=== PATIENT | male | born 1975 | race Hispanic/Latino ===

== ENCOUNTER 2018-09-03 18:38 | Emergency (ER) | payer SELFPAY ==
[2018-09-03] MEDS ORDERED: KETOROLAC TROMETHAMINE 30MG/ML ONE (19:05)
[2018-09-03] MEDS ORDERED: 0.9% SODIUM CHLORIDE 1000 ML IV BAG IV ONE (19:08)
[2018-09-03 19:10] LABS: BASOPHILS % (AUTO) 0.6 % (0.0-5.0); HEMATOCRIT 39.8 % (42-54); MEAN CORPUSCULAR HEMOGLOBIN 29.9 pg (27.0-33.0); MEAN CORPUSCULAR HGB CONC 34.3 g/dL (32.0-36.0); MEAN CORPUSCULAR VOLUME 87.2 fL (79-99); MONOCYTES % (AUTO) 6.8 % (3.0-13.0); NEUTROPHILS % (AUTO) 83.6 % (40.0-77.0); PLATELET COUNT (AUTO) 270 K/uL (130-400); RED BLOOD CELL COUNT(AUTO) 4.56 MIL/uL (4.50-6.20)
[2018-09-03 19:13] LABS: APPEARANCE,URINE Clear (CLEAR); BILIRUBIN,URINE Negative (NEGATIVE); COLOR,URINE Yellow (YELLOW); GLUCOSE, URINE (UA) >=1000 mg/dL (NEGATIVE); KETONES,URINE Negative (NEGATIVE); LEUKOCYTE ESTERASE ,URINE Negative (NEGATIVE); NITRATE,URINE Negative (NEGATIVE); OCCULT BLOOD,URINE Negative (NEGATIVE); PH,URINE 6.5 (5.0-8.0); PROTEIN,URINE Negative (NEGATIVE); UROBILINOGEN,URINE 0.2 mg/dL (0.2-1.0)
[2018-09-03 19:21] LABS: CREATININE 1.3 mg/dL (0.5-1.5); POTASSIUM 3.8 mmol/L (3.5-5.1)
[2018-09-03 19:25] LABS: ALBUMIN 4.2 g/dL (3.5-5.0); BILIRUBIN,TOTAL 1.3 mg/dL (0.2-1.0); TOTAL PROTEIN, SERUM 7.8 g/dL (6.0-8.3)
== END 2018-09-03 20:50 | disposition home or self-care (01) ==
LOC: EDH 18:38
DX: E86.9 Volume depletion, unspecified (principal); R19.7 Diarrhea, unspecified; E11.9 Type 2 diabetes mellitus without complications; Z72.0 Tobacco use
CPT/HCPCS: 36415; 80053; 81003; 82550; 85025; 87804 ×2; 96361; 96374; 99283; J1885; J7030

== ENCOUNTER 2020-01-12 09:30 | Emergency (ER) | payer OTHER | END 2020-01-12 10:17 | disposition home or self-care (01) | LOC: EDH 09:30 | DX: B02.9 Zoster without complications (principal); E11.9 Type 2 diabetes mellitus without complications; Z72.0 Tobacco use ==

== ENCOUNTER 2021-02-26 13:21 | Inpatient (IN) | payer OTHER ==
[~2021-02-26] VITALS: Ht 182.9 cm; Wt 75.4 kg
[2021-02-26] MEDS ORDERED: ZOSYN 3.375GM+NS 50ML 50 ML IV STA (13:36)
[2021-02-26] MEDS ORDERED: 0.9% NACL 250ML IVPB ONE (13:43)
[2021-02-26] MEDS ORDERED: VANCOMYCIN 1G VIAL IVPB ONE (14:00)
[2021-02-26 14:05] LABS: BASOPHILS % (AUTO) 0.4 % (0.0-5.0); EOSINOPHILS % (AUTO) 0.7 % (0.0-8.0); HEMATOCRIT 30.2 % (42-54); MEAN CORPUSCULAR HEMOGLOBIN 29.2 pg (27.0-33.0); MEAN CORPUSCULAR HGB CONC 34.4 g/dL (32.0-36.0); MEAN CORPUSCULAR VOLUME 84.8 fL (79-99); MONOCYTES % (AUTO) 6.7 % (3.0-13.0); NEUTROPHILS % (AUTO) 84.7 % (40.0-77.0); PLATELET COUNT (AUTO) 292 K/uL (130-400); RED BLOOD CELL COUNT(AUTO) 3.56 MIL/uL (4.50-6.20); RED CELL DISTRIBUTION WIDTH 12.6 % (11.0-15.5); WHITE BLOOD COUNT (AUTO) 13.8 K/uL (4.8-10.8)
[2021-02-26 14:14] LABS: POTASSIUM 3.3 mmol/L (3.5-5.1)
[2021-02-26 14:18] LABS: TOTAL PROTEIN, SERUM 7.5 g/dL (6.0-8.3)
[2021-02-26] MEDS ORDERED: ZOSYN 3.375GM+NS 50ML 50 ML ONE (15:26)
[2021-02-26] MEDS ORDERED: VANCOMYCIN 1G/250ML KIT 250 ML IV ONE (15:26)
[2021-02-26] MEDS ORDERED: ONDANSETRON 4MG INJ IV PRN (16:00)
[2021-02-26] MEDS ORDERED: LIDOCAINE HCL-MPF 1% 2ML VIAL IV PRN (16:00)
[2021-02-26] MEDS ORDERED: COMPOUND IV REFRIGERATED 1 EACH IVSOLN MISC PRN (16:00)
[2021-02-26] MEDS ORDERED: POTASSIUM CHLORIDE 10% ELIXIR 20 MEQ/15 ML UDCUP PO PRN (16:00)
[2021-02-26] MEDS ORDERED: ZOLPIDEM TARTRATE 5 MG TAB PO PRN (16:00)
[2021-02-26] MEDS ORDERED: POTASSIUM CHLORIDE 20MEQ/100ML 100 ML IV PRN (16:00)
[2021-02-26] MEDS ORDERED: VANCOMYCIN PROTOCOL PER PHARMACY IV PRN (16:00)
[2021-02-26] MEDS ORDERED: ACETAMINOPHEN 325 MG TAB PO PRN ×2 (16:00)
[2021-02-26] MEDS ORDERED: LACTULOSE 20 GM/30 ML UDCUP PO PRN (16:00)
[2021-02-26] MEDS ORDERED: DIPHENHYDRAMINE HCL 25 MG CAPSULE PO PRN (16:00)
[2021-02-26] MEDS: 0.9%NACL 1000ML 1,000 ML IV SCH (17:16)
[2021-02-26] MEDS ORDERED: DEXTROSE 50%-WATER 50 ML DISP.SYRIN IV PRN (17:30)
[2021-02-26] MEDS ORDERED: GLUCAGON 1MG KIT 1 MG ML IM PRN (17:30)
[2021-02-26] MEDS: FAMOTIDINE 20MG TAB PO SCH (20:46)
[2021-02-26] MEDS: ACETAMINOPHEN WITH CODEINE 1 TAB TAB PO PRN (20:47)
[2021-02-26] MEDS: ZOSYN 3.375GM+NS 50ML 50 ML IV SCH ×2 (21:00→23:06)
[2021-02-26] MEDS: INSULIN HUMULIN R 100 UNIT/ML 3ML SQ SCH (21:05)
[2021-02-26 21:58] LABS: APPEARANCE,URINE Clear (CLEAR); BILIRUBIN,URINE Negative (NEGATIVE); COLOR,URINE Yellow (YELLOW); GLUCOSE, URINE (UA) >=1000 mg/dL (NEGATIVE); KETONES,URINE 15 mg/dL (NEGATIVE); LEUKOCYTE ESTERASE ,URINE Negative (NEGATIVE); NITRATE,URINE Negative (NEGATIVE); OCCULT BLOOD,URINE Negative (NEGATIVE); PH,URINE 7.5 (5.0-8.0); PROTEIN,URINE Trace mg/dL (NEGATIVE)
[2021-02-26 22:04] LABS: BACTERIA,URINE None Seen /HPF (None Seen); MUCUS,URINE Few LPF (None Seen); RBC,URINE 0-1 /HPF (0-1); SQUAMOUS EPITHELIAL CELL,UR 0-2 /HPF (0-2); WBC,URINE 0-1 /HPF (0-1)
[2021-02-26] MEDS: VANCOMYCIN 1.25GM/NS 250ML IVPB SCH ×2 (22:55)
[2021-02-26] MEDS ORDERED: 0.9%NACL 50ML 50 ML IV ONE (23:02)
[2021-02-27] VITALS (7 sets, daily range): BP systolic 118–169; BP diastolic 63–89
[2021-02-27] MEDS: 0.9%NACL 1000ML 1,000 ML IV SCH ×3 (02:00→22:00)
[2021-02-27] MEDS ORDERED: MORPHINE 4 MG SYG IV ONE (03:00)
[2021-02-27 05:48] LABS: BASOPHILS % (AUTO) 0.3 % (0.0-5.0); EOSINOPHILS % (AUTO) 0.7 % (0.0-8.0); HEMATOCRIT 29.1 % (42-54); LYMPHOCYTES % (AUTO) 10.4 % (21.0-51.0); MEAN CORPUSCULAR HEMOGLOBIN 28.2 pg (27.0-33.0); MEAN CORPUSCULAR HGB CONC 33.7 g/dL (32.0-36.0); MEAN CORPUSCULAR VOLUME 83.9 fL (79-99); MONOCYTES % (AUTO) 9.8 % (3.0-13.0); NEUTROPHILS % (AUTO) 78.3 % (40.0-77.0); PLATELET COUNT (AUTO) 311 K/uL (130-400); RED BLOOD CELL COUNT(AUTO) 3.47 MIL/uL (4.50-6.20); RED CELL DISTRIBUTION WIDTH 12.7 % (11.0-15.5); WHITE BLOOD COUNT (AUTO) 13.3 K/uL (4.8-10.8)
[2021-02-27 06:19] LABS: ALBUMIN 2.6 g/dL (3.5-5.0); BILIRUBIN,TOTAL 0.9 mg/dL (0.2-1.0); CREATININE 0.9 mg/dL (0.5-1.5); POTASSIUM 3.1 mmol/L (3.5-5.1); TOTAL PROTEIN, SERUM 6.9 g/dL (6.0-8.3)
[2021-02-27 06:24] LABS: HEMOGLOBIN A1C 12.5 % (4.0-6.0)
[2021-02-27] MEDS: INSULIN HUMULIN R 100 UNIT/ML 3ML SQ SCH ×4 (07:30→21:00)
[2021-02-27] MEDS: FAMOTIDINE 20MG TAB PO SCH ×2 (09:00→21:00)
[2021-02-27] MEDS: ENOXAPARIN SODIUM 30 MG/0.3 ML SQ SCH (09:00)
[2021-02-27] MEDS: VANCOMYCIN 1.25GM/NS 250ML IVPB SCH ×4 (09:44→21:32)
[2021-02-27] MEDS: MORPHINE 2 MG SYG IVP PRN ×2 (11:19→20:15)
[2021-02-27] MEDS: ZOSYN 3.375GM+NS 50ML 50 ML IV SCH ×2 (14:08→21:31)
[2021-02-27] MEDS ORDERED: MIDAZOLAM HCL 1 MG/ML 2ML VIAL ONE (21:33)
[2021-02-27] MEDS ORDERED: PROPOFOL 10 MG/ML 20ML VIAL IV ONE (21:34)
[2021-02-27] MEDS ORDERED: FENTANYL CITRATE PF 50 MCG/1 ML 2ML VIAL ONE (21:34)
[2021-02-28] VITALS (23 sets, daily range): BP systolic 83–148; BP diastolic 43–84
[2021-02-28] MEDS ORDERED: BUPIVACAINE/PF 0.5% 30ML VIAL ONE (00:40)
[2021-02-28] MEDS ORDERED: LIDOCAINE HCL 1% 20 ML VIAL ONE (00:40)
[2021-02-28] MEDS ORDERED: PROPOFOL 10 MG/ML 20ML VIAL IV ONE ×3 (00:41→01:21)
[2021-02-28] MEDS ORDERED: MIDAZOLAM HCL 1 MG/ML 2ML VIAL ONE (00:52)
[2021-02-28] MEDS ORDERED: FENTANYL CITRATE PF 50 MCG/1 ML 2ML VIAL ONE (01:04)
[2021-02-28] MEDS: 0.9%NACL 1000ML 1,000 ML IV SCH ×3 (01:35→18:15)
[2021-02-28 05:05] LABS: BASOPHILS % (AUTO) 0.4 % (0.0-5.0); EOSINOPHILS % (AUTO) 0.3 % (0.0-8.0); HEMATOCRIT 27.1 % (42-54); LYMPHOCYTES % (AUTO) 10.5 % (21.0-51.0); MEAN CORPUSCULAR HEMOGLOBIN 28.3 pg (27.0-33.0); MEAN CORPUSCULAR HGB CONC 32.8 g/dL (32.0-36.0); MEAN CORPUSCULAR VOLUME 86.3 fL (79-99); MONOCYTES % (AUTO) 8.8 % (3.0-13.0); NEUTROPHILS % (AUTO) 79.6 % (40.0-77.0); PLATELET COUNT (AUTO) 303 K/uL (130-400); RED BLOOD CELL COUNT(AUTO) 3.14 MIL/uL (4.50-6.20); RED CELL DISTRIBUTION WIDTH 12.8 % (11.0-15.5)
[2021-02-28 05:22] LABS: CREATININE 0.9 mg/dL (0.5-1.5); POTASSIUM 3.1 mmol/L (3.5-5.1)
[2021-02-28] MEDS: KCL 20 MEQ ERTAB PO PRN ×3 (05:34→10:31)
[2021-02-28] MEDS: HYDROMORPHONE 0.5 MG SYG (0.5MG/0.5ML) IVP PRN (05:35)
[2021-02-28] MEDS: ZOSYN 3.375GM+NS 50ML 50 ML IV SCH ×3 (05:56→20:16)
[2021-02-28] MEDS: INSULIN HUMULIN R 100 UNIT/ML 3ML SQ SCH ×4 (06:17→21:14)
[2021-02-28] MEDS: FAMOTIDINE 20MG TAB PO SCH ×2 (10:04→20:16)
[2021-02-28] MEDS: ENOXAPARIN SODIUM 30 MG/0.3 ML SQ SCH (10:05)
[2021-02-28] MEDS: VANCOMYCIN 1.5GM/NS 250ML IV SCH ×4 (10:05→20:16)
[2021-02-28] MEDS: MORPHINE 2 MG SYG IVP PRN ×3 (10:18→20:17)
[2021-02-28] MEDS ORDERED: IOHEXOL 350 MG/ML 100ML INFUS..BTL IV ONE (15:50)
[2021-02-28] MEDS ORDERED: IOHEXOL-350 50ML VIAL IV ONE (15:50)
[2021-03-01] VITALS (7 sets, daily range): BP systolic 108–146; BP diastolic 50–83
[2021-03-01] MEDS: MORPHINE 2 MG SYG IVP PRN ×3 (00:19→21:53)
[2021-03-01] MEDS: 0.9%NACL 1000ML 1,000 ML IV SCH ×2 (04:00→14:57)
[2021-03-01] MEDS: HYDROMORPHONE 0.5 MG SYG (0.5MG/0.5ML) IVP PRN ×2 (04:10→18:11)
[2021-03-01 05:08] LABS: HEMATOCRIT 25.1 % (42-54); MEAN CORPUSCULAR HEMOGLOBIN 28.5 pg (27.0-33.0); MEAN CORPUSCULAR HGB CONC 33.9 g/dL (32.0-36.0); MEAN CORPUSCULAR VOLUME 84.2 fL (79-99); RED BLOOD CELL COUNT(AUTO) 2.98 MIL/uL (4.50-6.20); RED CELL DISTRIBUTION WIDTH 12.8 % (11.0-15.5); WHITE BLOOD COUNT (AUTO) 12.1 K/uL (4.8-10.8)
[2021-03-01 05:27] LABS: CREATININE 0.9 mg/dL (0.5-1.5); POTASSIUM 3.1 mmol/L (3.5-5.1)
[2021-03-01] MEDS: ZOSYN 3.375GM+NS 50ML 50 ML IV SCH ×2 (05:54→12:13)
[2021-03-01] MEDS: KCL 20 MEQ ERTAB PO PRN ×3 (06:33→14:57)
[2021-03-01] MEDS: INSULIN HUMULIN R 100 UNIT/ML 3ML SQ SCH ×4 (06:54→20:15)
[2021-03-01] MEDS ORDERED: KCL 20 MEQ ERTAB PO PRN (07:00)
[2021-03-01] MEDS ORDERED: LIDOCAINE HCL-MPF 1% 2ML VIAL IV PRN (07:00)
[2021-03-01] MEDS ORDERED: POTASSIUM CHLORIDE 10% ELIXIR 20 MEQ/15 ML UDCUP PO PRN (07:00)
[2021-03-01] MEDS ORDERED: POTASSIUM CHLORIDE 20MEQ/100ML 100 ML IV PRN (07:00)
[2021-03-01] MEDS: FAMOTIDINE 20MG TAB PO SCH ×2 (08:52→20:10)
[2021-03-01] MEDS: ASPIRIN 81 MG EC TAB PO SCH (08:52)
[2021-03-01] MEDS: ENOXAPARIN SODIUM 30 MG/0.3 ML SQ SCH (08:53)
[2021-03-01] MEDS: VANCOMYCIN 1.5GM/NS 250ML IV SCH ×2 (08:54)
[2021-03-01] MEDS: GUAIFENESIN-DM 200/20 MG 10 ML PO PRN (12:27)
[2021-03-01] MEDS: CEPHALEXIN 500 MG CAPSULE PO SCH ×2 (14:57→20:11)
[2021-03-01] MEDS: ACETAMINOPHEN WITH CODEINE 1 TAB TAB PO PRN (15:01)
[2021-03-02] MEDS: MORPHINE 2 MG SYG IVP PRN ×2 (02:16→20:16)
[2021-03-02 03:19] VITALS: BP 123/65
[2021-03-02] MEDS: 0.9%NACL 1000ML 1,000 ML IV SCH ×3 (04:27→20:00)
[2021-03-02 04:57] LABS: HEMATOCRIT 25.6 % (42-54); MEAN CORPUSCULAR HEMOGLOBIN 28.5 pg (27.0-33.0); MEAN CORPUSCULAR HGB CONC 33.2 g/dL (32.0-36.0); MEAN CORPUSCULAR VOLUME 85.9 fL (79-99); RED BLOOD CELL COUNT(AUTO) 2.98 MIL/uL (4.50-6.20); RED CELL DISTRIBUTION WIDTH 12.8 % (11.0-15.5); WHITE BLOOD COUNT (AUTO) 9.9 K/uL (4.8-10.8)
[2021-03-02 05:07] LABS: CREATININE 0.9 mg/dL (0.5-1.5); POTASSIUM 3.7 mmol/L (3.5-5.1)
[2021-03-02] MEDS: INSULIN HUMULIN R 100 UNIT/ML 3ML SQ SCH ×4 (06:03→20:15)
[2021-03-02] MEDS: CEPHALEXIN 500 MG CAPSULE PO SCH ×3 (06:09→21:42)
[2021-03-02 07:54] VITALS: BP 138/88
[2021-03-02] MEDS: FAMOTIDINE 20MG TAB PO SCH ×2 (08:05→20:18)
[2021-03-02] MEDS: ASPIRIN 81 MG EC TAB PO SCH (08:05)
[2021-03-02] MEDS: ENOXAPARIN SODIUM 30 MG/0.3 ML SQ SCH (08:05)
[2021-03-02] MEDS: HYDROMORPHONE 0.5 MG SYG (0.5MG/0.5ML) IVP PRN ×3 (08:17→14:58)
[2021-03-02] MEDS: GUAIFENESIN-DM 200/20 MG 10 ML PO PRN ×2 (09:54→21:13)
[2021-03-02 12:24] VITALS: BP 133/76
[2021-03-02 16:38] VITALS: BP 125/76
[2021-03-02 19:53] VITALS: BP 173/94
[2021-03-02] MEDS: ATORVASTATIN 10 MG TABLET PO SCH (20:18)
[2021-03-02 23:31] VITALS: BP 124/69
[2021-03-03 03:49] VITALS: BP 151/92
[2021-03-03] MEDS: INSULIN HUMULIN R 100 UNIT/ML 3ML SQ SCH ×4 (05:46→20:33)
[2021-03-03] MEDS: CEPHALEXIN 500 MG CAPSULE PO SCH ×3 (05:55→20:57)
[2021-03-03] MEDS: 0.9%NACL 1000ML 1,000 ML IV SCH ×2 (06:00→16:00)
[2021-03-03] MEDS: MORPHINE 2 MG SYG IVP PRN (06:16)
[2021-03-03 08:08] VITALS: BP 127/80
[2021-03-03] MEDS: FAMOTIDINE 20MG TAB PO SCH ×2 (09:16→20:36)
[2021-03-03] MEDS: ASPIRIN 81 MG EC TAB PO SCH (09:16)
[2021-03-03] MEDS: ENOXAPARIN SODIUM 30 MG/0.3 ML SQ SCH (09:17)
[2021-03-03] MEDS: HYDROMORPHONE 0.5 MG SYG (0.5MG/0.5ML) IVP PRN ×3 (11:22→22:53)
[2021-03-03 11:59] VITALS: BP 138/89
[2021-03-03 16:07] VITALS: BP 128/76
[2021-03-03 20:24] VITALS: BP 132/85
[2021-03-03] MEDS: ATORVASTATIN 10 MG TABLET PO SCH (20:36)
[2021-03-04 00:28] VITALS: BP 122/82
[2021-03-04 04:28] VITALS: BP 134/78
[2021-03-04] MEDS: CEPHALEXIN 500 MG CAPSULE PO SCH ×2 (05:22→15:07)
[2021-03-04 06:11] LABS: BASOPHILS % (AUTO) 0.7 % (0.0-5.0); EOSINOPHILS % (AUTO) 5.7 % (0.0-8.0); HEMATOCRIT 27.2 % (42-54); LYMPHOCYTES % (AUTO) 23.4 % (21.0-51.0); MEAN CORPUSCULAR HEMOGLOBIN 28.6 pg (27.0-33.0); MEAN CORPUSCULAR HGB CONC 33.1 g/dL (32.0-36.0); MEAN CORPUSCULAR VOLUME 86.3 fL (79-99); MONOCYTES % (AUTO) 8.8 % (3.0-13.0); NEUTROPHILS % (AUTO) 60.5 % (40.0-77.0); PLATELET COUNT (AUTO) 537 K/uL (130-400); RED BLOOD CELL COUNT(AUTO) 3.15 MIL/uL (4.50-6.20); RED CELL DISTRIBUTION WIDTH 12.9 % (11.0-15.5)
[2021-03-04] MEDS: INSULIN HUMULIN R 100 UNIT/ML 3ML SQ SCH ×3 (06:26→16:30)
[2021-03-04 06:33] LABS: CREATININE 0.9 mg/dL (0.5-1.5); POTASSIUM 3.8 mmol/L (3.5-5.1)
[2021-03-04 07:49] VITALS: BP 125/78
[2021-03-04] MEDS ORDERED: ATOR10 PO (07:55)
[2021-03-04] MEDS ORDERED: AEC81 PO (07:55)
[2021-03-04] MEDS ORDERED: TYL3B PO (07:55)
[2021-03-04] MEDS ORDERED: CEPH500C2 PO (07:55)
[2021-03-04] MEDS: ASPIRIN 81 MG EC TAB PO SCH (08:58)
[2021-03-04] MEDS: FAMOTIDINE 20MG TAB PO SCH (08:58)
[2021-03-04] MEDS: ENOXAPARIN SODIUM 30 MG/0.3 ML SQ SCH (08:59)
[2021-03-04] MEDS: MORPHINE 2 MG SYG IVP PRN (09:01)
[2021-03-04 12:00] VITALS: BP 145/89
[2021-03-04] MEDS ORDERED: HONEY 1 APPL/ML TUBE TP ONE (14:41)
== END 2021-03-04 15:30 | disposition home or self-care (01) | DRG 853 ==
LOC: EDH 13:21 → EDHIP 13:22 → 3BH 02-27 02:30
PROVIDERS: ADMIT Internal Medicine; ATTEND Internal Medicine
PROC: 0JBQ0ZZ Excision of Right Foot Subcutaneous Tissue and Fascia, Open Approach (ICD-10-PCS; 2021-02-26)
PROC: 0LBV0ZZ Excision of Right Foot Tendon, Open Approach (ICD-10-PCS; 2021-02-28)
PROC: 0Y6M0Z9 Detachment at Right Foot, Partial 1st Ray, Open Approach (ICD-10-PCS; principal; 2021-02-28 00:35)
DX: A41.9 Sepsis, unspecified organism (principal); A48.0 Gas gangrene; M72.6 Necrotizing fasciitis; E44.0 Moderate protein-calorie malnutrition; E11.52 Type 2 diabetes mellitus with diabetic peripheral angiopathy with gangrene; M86.8X7 Other osteomyelitis, ankle and foot; L03.115 Cellulitis of right lower limb; E11.621 Type 2 diabetes mellitus with foot ulcer; E87.6 Hypokalemia; L97.519 Non-pressure chronic ulcer of other part of right foot with unspecified severity; E11.65 Type 2 diabetes mellitus with hyperglycemia; E11.69 Type 2 diabetes mellitus with other specified complication; L97.529 Non-pressure chronic ulcer of other part of left foot with unspecified severity; F17.210 Nicotine dependence, cigarettes, uncomplicated; F14.10 Cocaine abuse, uncomplicated; G89.29 Other chronic pain; Z68.22 Body mass index [BMI] 22.0-22.9, adult; Z82.49 Family history of ischemic heart disease and other diseases of the circulatory system
CPT/HCPCS: 36415; 73630; 73718; 75635; 80048; 80053; 80061; 80202; 81001; 82948; 83036; 83605; 85025; 85027; 87040; 87070; 87076; 87077; 87088; 87186; 87205; 93005; 93925; G0378; J1170; J1650; J1815; J2250; J2270; J2543; J2704; J3010; J3370; J3480; J3490; J7030; J7050; Q9967

== ENCOUNTER 2021-03-30 11:05 | Inpatient (IN) | payer OTHER ==
[~2021-03-30] VITALS: Ht 180.3 cm; Wt 79.4 kg
[~2021-03-30 11:05] MED LIST: AEC81 PO; ATOR10 PO; CEPH500C2 PO; TYL3B PO
[2021-03-30 12:22] LABS: BASOPHILS % (AUTO) 0.9 % (0.0-5.0); EOSINOPHILS % (AUTO) 2.8 % (0.0-8.0); HEMATOCRIT 35.5 % (42-54); MEAN CORPUSCULAR HEMOGLOBIN 27.4 pg (27.0-33.0); MEAN CORPUSCULAR VOLUME 83.1 fL (79-99); MONOCYTES % (AUTO) 7.2 % (3.0-13.0); NEUTROPHILS % (AUTO) 68.6 % (40.0-77.0); PLATELET COUNT (AUTO) 374 K/uL (130-400); RED BLOOD CELL COUNT(AUTO) 4.27 MIL/uL (4.50-6.20); WHITE BLOOD COUNT (AUTO) 7.5 K/uL (4.8-10.8)
[2021-03-30] MEDS ORDERED: VANCOMYCIN 1G VIAL IVPB ONE (12:30)
[2021-03-30 12:38] LABS: ALBUMIN 3.5 g/dL (3.5-5.0); BILIRUBIN,TOTAL 0.5 mg/dL (0.2-1.0); CREATININE 1.1 mg/dL (0.5-1.5); CRP QUANTITATIVE 113.2 mg/L (0.00-9.0); POTASSIUM 4.7 mmol/L (3.5-5.1); TOTAL PROTEIN, SERUM 8.8 g/dL (6.0-8.3)
[2021-03-30] MEDS ORDERED: VANCOMYCIN 1G/250ML KIT 250 ML IV ONE (12:48)
[2021-03-30] MEDS ORDERED: INSULIN HUMULIN R 100 UNIT/ML 3ML SQ ONE (13:00)
[2021-03-30] MEDS ORDERED: 0.9%NACL 1000ML 1,000 ML IV ONE (13:00)
[2021-03-30] MEDS ORDERED: INSULIN HUMULIN R 100 UNIT/ML 3ML ONE (13:12)
[2021-03-30] MEDS ORDERED: ACETAMINOPHEN 325 MG TAB PO PRN (13:30)
[2021-03-30] MEDS ORDERED: ONDANSETRON 4MG INJ IV PRN (13:30)
[2021-03-30 13:45] LABS: % IRON SATURATION 15.4 % (30-44)
[2021-03-30 14:44] LABS: RETICULOCYTE % (AUTO) 1.59 % (0.42-2.23)
[2021-03-30 15:27] LABS: APPEARANCE,URINE Clear (CLEAR); BILIRUBIN,URINE Negative (NEGATIVE); COLOR,URINE Yellow (YELLOW); GLUCOSE, URINE (UA) >=1000 mg/dL (NEGATIVE); KETONES,URINE Negative (NEGATIVE); LEUKOCYTE ESTERASE ,URINE Negative (NEGATIVE); NITRATE,URINE Negative (NEGATIVE); OCCULT BLOOD,URINE Negative (NEGATIVE); PROTEIN,URINE Negative (NEGATIVE)
[2021-03-30 16:09] LABS: BACTERIA,URINE Rare /HPF (None Seen); RBC,URINE 0-1 /HPF (0-1); SQUAMOUS EPITHELIAL CELL,UR Rare /HPF (0-2); WBC,URINE 0-1 /HPF (0-1)
[2021-03-30] MEDS: INSULIN HUMULIN R 100 UNIT/ML 3ML SQ SCH ×3 (18:13→20:53)
[2021-03-30] MEDS: ACETAMINOPHEN 325 MG TAB PO PRN (18:37)
[2021-03-30] MEDS ORDERED: 0.9%NACL 50ML 50 ML IV ONE (20:41)
[2021-03-30] MEDS: ZOSYN 3.375GM+NS 50ML 50 ML IV SCH (20:53)
[2021-03-30] MEDS: FAMOTIDINE 20MG TAB PO SCH (20:53)
[2021-03-30] MEDS: INSULIN GLARGINE 100 UNITS/ML 10 ML VIAL SQ SCH (20:53)
[2021-03-30 21:30] VITALS: BP 175/90
[2021-03-30] MEDS ORDERED: KETOROLAC 30MG VIAL (30MG/ML) ONE (23:04)
[2021-03-30] MEDS ORDERED: KETOROLAC 30MG VIAL (30MG/ML) IV ONE (23:30)
[2021-03-30 23:38] VITALS: BP 153/87
[2021-03-31 03:15] VITALS: BP 145/91
[2021-03-31] MEDS: ZOSYN 3.375GM+NS 50ML 50 ML IV SCH ×3 (05:38→20:27)
[2021-03-31] MEDS: INSULIN HUMULIN R 100 UNIT/ML 3ML SQ SCH ×7 (07:04→22:26)
[2021-03-31 08:00] VITALS: BP 169/85
[2021-03-31] MEDS: FAMOTIDINE 20MG TAB PO SCH ×2 (08:39→20:27)
[2021-03-31] MEDS: ACETAMINOPHEN 325 MG TAB PO PRN (08:40)
[2021-03-31] MEDS ORDERED: HYDROMORPHONE 1 MG INJ IVP PRN (11:00)
[2021-03-31 12:00] VITALS: BP 131/78
[2021-03-31] MEDS: HYDROMORPHONE 0.5 MG SYG (0.5MG/0.5ML) IVP PRN ×3 (12:06→22:18)
[2021-03-31] MEDS: ASPIRIN 81 MG EC TAB PO SCH (13:19)
[2021-03-31] MEDS: ENOXAPARIN SODIUM 40 MG/0.4 ML SYRINGE SQ SCH (13:19)
[2021-03-31 16:00] VITALS: BP 147/89
[2021-03-31 20:00] VITALS: BP 169/98
[2021-03-31] MEDS: INSULIN GLARGINE 100 UNITS/ML 10 ML VIAL SQ SCH (22:26)
[2021-04-01] VITALS: BP 129/84
[2021-04-01] MEDS: ZOSYN 3.375GM+NS 50ML 50 ML IV SCH ×3 (03:46→19:25)
[2021-04-01] MEDS: HYDROMORPHONE 0.5 MG SYG (0.5MG/0.5ML) IVP PRN ×5 (03:47→22:57)
[2021-04-01 04:00] VITALS: BP 117/78
[2021-04-01] MEDS: INSULIN HUMULIN R 100 UNIT/ML 3ML SQ SCH ×7 (07:48→20:47)
[2021-04-01] MEDS: FAMOTIDINE 20MG TAB PO SCH ×2 (08:46→19:25)
[2021-04-01] MEDS: ASPIRIN 81 MG EC TAB PO SCH (08:46)
[2021-04-01] MEDS: ENOXAPARIN SODIUM 40 MG/0.4 ML SYRINGE SQ SCH (08:47)
[2021-04-01 09:38] VITALS: BP 129/79
[2021-04-01 12:00] VITALS: BP 127/79
[2021-04-01 18:51] VITALS: BP 141/90
[2021-04-01] MEDS ORDERED: ATORVASTATIN 40 MG TABLET ONE (18:57)
[2021-04-01] MEDS: ATORVASTATIN 40 MG TABLET PO SCH (19:25)
[2021-04-01 20:00] VITALS: BP 152/88
[2021-04-01] MEDS: INSULIN GLARGINE 100 UNITS/ML 10 ML VIAL SQ SCH (20:46)
[2021-04-02] VITALS: BP 118/73
[2021-04-02] MEDS: HYDROMORPHONE 0.5 MG SYG (0.5MG/0.5ML) IVP PRN (03:04)
[2021-04-02] MEDS: ZOSYN 3.375GM+NS 50ML 50 ML IV SCH ×3 (03:04→19:56)
[2021-04-02 04:00] VITALS: BP 134/83
[2021-04-02 05:20] LABS: BASOPHILS % (AUTO) 0.6 % (0.0-5.0); EOSINOPHILS % (AUTO) 3.3 % (0.0-8.0); HEMATOCRIT 30.3 % (42-54); LYMPHOCYTES % (AUTO) 24.3 % (21.0-51.0); MEAN CORPUSCULAR HEMOGLOBIN 26.9 pg (27.0-33.0); MEAN CORPUSCULAR VOLUME 83.9 fL (79-99); MONOCYTES % (AUTO) 7.2 % (3.0-13.0); NEUTROPHILS % (AUTO) 64.1 % (40.0-77.0); PLATELET COUNT (AUTO) 399 K/uL (130-400); RED BLOOD CELL COUNT(AUTO) 3.61 MIL/uL (4.50-6.20); RED CELL DISTRIBUTION WIDTH 13.2 % (11.0-15.5); WHITE BLOOD COUNT (AUTO) 9.4 K/uL (4.8-10.8)
[2021-04-02 05:36] LABS: CREATININE 0.8 mg/dL (0.5-1.5); POTASSIUM 3.9 mmol/L (3.5-5.1)
[2021-04-02] MEDS: INSULIN HUMULIN R 100 UNIT/ML 3ML SQ SCH ×7 (06:33→21:36)
[2021-04-02 07:00] VITALS: BP 133/84
[2021-04-02] MEDS ORDERED: KETOROLAC 30MG VIAL (30MG/ML) ONE (09:26)
[2021-04-02] MEDS: ASPIRIN 81 MG EC TAB PO SCH (09:28)
[2021-04-02] MEDS: FAMOTIDINE 20MG TAB PO SCH ×2 (09:29→19:54)
[2021-04-02] MEDS: ENOXAPARIN SODIUM 40 MG/0.4 ML SYRINGE SQ SCH (09:30)
[2021-04-02 11:00] VITALS: BP 124/76
[2021-04-02] MEDS: TRAMADOL /APAP 37.5MG/325MG TAB PO PRN ×2 (14:10→19:55)
[2021-04-02 15:00] VITALS: BP 157/89
[2021-04-02] MEDS: ACETAMINOPHEN 325 MG TAB PO PRN (17:02)
[2021-04-02] MEDS: ATORVASTATIN 40 MG TABLET PO SCH (19:54)
[2021-04-02 20:00] VITALS: BP 158/96
[2021-04-02] MEDS: INSULIN GLARGINE 100 UNITS/ML 10 ML VIAL SQ SCH (21:36)
[2021-04-02] MEDS: KETOROLAC 30MG VIAL (30MG/ML) IM PRN (23:48)
[2021-04-03] VITALS (7 sets, daily range): BP systolic 137–170; BP diastolic 81–98
[2021-04-03] MEDS: ZOSYN 3.375GM+NS 50ML 50 ML IV SCH ×3 (03:50→20:30)
[2021-04-03] MEDS: TRAMADOL /APAP 37.5MG/325MG TAB PO PRN ×3 (03:52→22:36)
[2021-04-03] MEDS: INSULIN HUMULIN R 100 UNIT/ML 3ML SQ SCH ×7 (06:26→20:33)
[2021-04-03] MEDS: ASPIRIN 81 MG EC TAB PO SCH (08:46)
[2021-04-03] MEDS: FAMOTIDINE 20MG TAB PO SCH ×2 (08:46→20:31)
[2021-04-03] MEDS: ENOXAPARIN SODIUM 40 MG/0.4 ML SYRINGE SQ SCH (08:47)
[2021-04-03] MEDS: KETOROLAC 30MG VIAL (30MG/ML) IM PRN ×2 (08:49→18:38)
[2021-04-03] MEDS: HYDRALAZINE 20MG/ML VIAL ONE ×2 (18:43→18:47)
[2021-04-03] MEDS ORDERED: HYDRALAZINE 20MG/ML VIAL IV PRN (19:00)
[2021-04-03] MEDS: ATORVASTATIN 40 MG TABLET PO SCH (20:31)
[2021-04-03] MEDS: INSULIN GLARGINE 100 UNITS/ML 10 ML VIAL SQ SCH (20:32)
[2021-04-04] VITALS (19 sets, daily range): BP systolic 113–179; BP diastolic 71–105
[2021-04-04] MEDS: KETOROLAC 30MG VIAL (30MG/ML) IM PRN (02:30)
[2021-04-04] MEDS: ZOSYN 3.375GM+NS 50ML 50 ML IV SCH ×3 (05:27→19:51)
[2021-04-04 05:28] LABS: BASOPHILS % (AUTO) 0.6 % (0.0-5.0); EOSINOPHILS % (AUTO) 2.8 % (0.0-8.0); HEMATOCRIT 31.5 % (42-54); LYMPHOCYTES % (AUTO) 20.3 % (21.0-51.0); MEAN CORPUSCULAR HEMOGLOBIN 27.4 pg (27.0-33.0); MEAN CORPUSCULAR HGB CONC 32.4 g/dL (32.0-36.0); MEAN CORPUSCULAR VOLUME 84.7 fL (79-99); MONOCYTES % (AUTO) 7.1 % (3.0-13.0); NEUTROPHILS % (AUTO) 68.6 % (40.0-77.0); PLATELET COUNT (AUTO) 362 K/uL (130-400); RED BLOOD CELL COUNT(AUTO) 3.72 MIL/uL (4.50-6.20); RED CELL DISTRIBUTION WIDTH 13.2 % (11.0-15.5); WHITE BLOOD COUNT (AUTO) 8.6 K/uL (4.8-10.8)
[2021-04-04 05:38] LABS: POTASSIUM 4.2 mmol/L (3.5-5.1)
[2021-04-04] MEDS: INSULIN HUMULIN R 100 UNIT/ML 3ML SQ SCH ×7 (06:38→19:51)
[2021-04-04] MEDS ORDERED: INSULIN HUMULIN R 100 UNIT/ML 3ML SQ SCH (07:30)
[2021-04-04 08:29] LABS: INR 1.04 (0.85-1.15); PROTHROMBIN TIME 11.3 SEC (9.6-11.6)
[2021-04-04 08:31] LABS: PARTIAL THROMBOPLASTIN TIME 31.3 SEC (26.3-35.5)
[2021-04-04] MEDS: FAMOTIDINE 20MG TAB PO SCH ×2 (09:00→19:51)
[2021-04-04] MEDS: ASPIRIN 81 MG EC TAB PO SCH (09:00)
[2021-04-04] MEDS: ENOXAPARIN SODIUM 40 MG/0.4 ML SYRINGE SQ SCH (09:00)
[2021-04-04] MEDS ORDERED: KETOROLAC 30MG VIAL (30MG/ML) ONE (12:03)
[2021-04-04] MEDS: KETOROLAC 30MG VIAL (30MG/ML) IV PRN ×2 (12:14→19:52)
[2021-04-04] MEDS ORDERED: 0.9%NACL 1000ML 1,000 ML IV ONE (15:54)
[2021-04-04] MEDS ORDERED: BUPIVACAINE/PF 0.5% 30ML VIAL ONE (16:56)
[2021-04-04] MEDS ORDERED: LIDOCAINE HCL 1% 20 ML VIAL ONE (16:56)
[2021-04-04] MEDS ORDERED: PROPOFOL 1000 MG/100 ML 100 ML IV ONE (17:22)
[2021-04-04] MEDS ORDERED: MIDAZOLAM HCL 1 MG/ML 2ML VIAL ONE (17:25)
[2021-04-04] MEDS ORDERED: FENTANYL CITRATE PF 50 MCG/1 ML 2ML VIAL ONE (18:11)
[2021-04-04] MEDS ORDERED: ONDANSETRON 4MG INJ ONE (18:11)
[2021-04-04] MEDS: ATORVASTATIN 40 MG TABLET PO SCH (19:51)
[2021-04-04] MEDS: INSULIN GLARGINE 100 UNITS/ML 10 ML VIAL SQ SCH (20:05)
[2021-04-05] MEDS: KETOROLAC 30MG VIAL (30MG/ML) IV PRN (03:20)
[2021-04-05 03:43] VITALS: BP 135/82
[2021-04-05] MEDS: ZOSYN 3.375GM+NS 50ML 50 ML IV SCH ×3 (04:15→20:07)
[2021-04-05] MEDS: INSULIN HUMULIN R 100 UNIT/ML 3ML SQ SCH ×8 (05:54→20:23)
[2021-04-05 06:09] LABS: BASOPHILS % (AUTO) 0.5 % (0.0-5.0); EOSINOPHILS % (AUTO) 1.5 % (0.0-8.0); LYMPHOCYTES % (AUTO) 18.3 % (21.0-51.0); MEAN CORPUSCULAR HEMOGLOBIN 27.2 pg (27.0-33.0); MEAN CORPUSCULAR HGB CONC 32.4 g/dL (32.0-36.0); MEAN CORPUSCULAR VOLUME 84.1 fL (79-99); MONOCYTES % (AUTO) 6.3 % (3.0-13.0); NEUTROPHILS % (AUTO) 73.1 % (40.0-77.0); PLATELET COUNT (AUTO) 358 K/uL (130-400); RED BLOOD CELL COUNT(AUTO) 3.45 MIL/uL (4.50-6.20); RED CELL DISTRIBUTION WIDTH 13.4 % (11.0-15.5); WHITE BLOOD COUNT (AUTO) 11.6 K/uL (4.8-10.8)
[2021-04-05 08:00] VITALS: BP 169/93
[2021-04-05] MEDS: FAMOTIDINE 20MG TAB PO SCH ×2 (09:09→20:07)
[2021-04-05] MEDS: ENOXAPARIN SODIUM 40 MG/0.4 ML SYRINGE SQ SCH (09:09)
[2021-04-05] MEDS: ASPIRIN 81 MG EC TAB PO SCH (09:09)
[2021-04-05] MEDS: MORPHINE 2 MG SYG IVP PRN ×3 (09:11→20:07)
[2021-04-05 12:00] VITALS: BP 158/92
[2021-04-05 16:00] VITALS: BP 157/95
[2021-04-05 20:00] VITALS: BP 188/99
[2021-04-05] MEDS: ATORVASTATIN 40 MG TABLET PO SCH (20:07)
[2021-04-05] MEDS: INSULIN GLARGINE 100 UNITS/ML 10 ML VIAL SQ SCH (20:23)
[2021-04-05 21:40] VITALS: BP 138/73
[2021-04-06] VITALS: BP 140/82
[2021-04-06] MEDS: ACETAMINOPHEN WITH CODEINE 1 TAB TAB PO PRN ×2 (00:41→13:25)
[2021-04-06 04:00] VITALS: BP 118/72
[2021-04-06] MEDS: ZOSYN 3.375GM+NS 50ML 50 ML IV SCH ×2 (04:34→13:25)
[2021-04-06] MEDS: MORPHINE 2 MG SYG IVP PRN ×2 (04:41→08:58)
[2021-04-06 05:28] LABS: BASOPHILS % (AUTO) 0.5 % (0.0-5.0); EOSINOPHILS % (AUTO) 2.1 % (0.0-8.0); HEMATOCRIT 28.8 % (42-54); LYMPHOCYTES % (AUTO) 17.3 % (21.0-51.0); MEAN CORPUSCULAR HEMOGLOBIN 27.2 pg (27.0-33.0); MEAN CORPUSCULAR HGB CONC 32.3 g/dL (32.0-36.0); MEAN CORPUSCULAR VOLUME 84.2 fL (79-99); MONOCYTES % (AUTO) 8.6 % (3.0-13.0); PLATELET COUNT (AUTO) 354 K/uL (130-400); RED BLOOD CELL COUNT(AUTO) 3.42 MIL/uL (4.50-6.20); RED CELL DISTRIBUTION WIDTH 13.4 % (11.0-15.5); WHITE BLOOD COUNT (AUTO) 11.1 K/uL (4.8-10.8)
[2021-04-06 05:37] LABS: CREATININE 0.9 mg/dL (0.5-1.5); POTASSIUM 3.9 mmol/L (3.5-5.1)
[2021-04-06] MEDS: INSULIN HUMULIN R 100 UNIT/ML 3ML SQ SCH ×6 (06:28→16:52)
[2021-04-06 08:00] VITALS: BP 119/72
[2021-04-06] MEDS ORDERED: METF-446 PO (08:08)
[2021-04-06] MEDS ORDERED: AMLODIPINE 5 MG TAB PO SCH (08:30)
[2021-04-06] MEDS: ENOXAPARIN SODIUM 40 MG/0.4 ML SYRINGE SQ SCH (08:44)
[2021-04-06] MEDS: FAMOTIDINE 20MG TAB PO SCH (08:44)
[2021-04-06] MEDS: ASPIRIN 81 MG EC TAB PO SCH (08:44)
[2021-04-06 12:00] VITALS: BP 148/79
[2021-04-06] MEDS ORDERED: INSULIN HUMULIN R 100 UNIT/ML 3ML SQ SCH (12:00)
== END 2021-04-06 18:00 | disposition home or self-care (01) | DRG 504 ==
LOC: EDH 11:05 → EDHIP 11:06 → 3AH 21:10
PROVIDERS: ADMIT Internal Medicine; ATTEND Internal Medicine
PROC: 0QBN0ZZ Excision of Right Metatarsal, Open Approach (ICD-10-PCS; principal; 2021-04-04 17:30)
DX: T87.89 Other complications of amputation stump (principal); I70.261 Atherosclerosis of native arteries of extremities with gangrene, right leg; L03.90 Cellulitis, unspecified; M86.671 Other chronic osteomyelitis, right ankle and foot; E87.1 Hypo-osmolality and hyponatremia; L97.514 Non-pressure chronic ulcer of other part of right foot with necrosis of bone; E11.621 Type 2 diabetes mellitus with foot ulcer; E11.65 Type 2 diabetes mellitus with hyperglycemia; D64.9 Anemia, unspecified; E11.69 Type 2 diabetes mellitus with other specified complication; E66.9 Obesity, unspecified; F14.90 Cocaine use, unspecified, uncomplicated; F17.210 Nicotine dependence, cigarettes, uncomplicated; L97.529 Non-pressure chronic ulcer of other part of left foot with unspecified severity; E11.51 Type 2 diabetes mellitus with diabetic peripheral angiopathy without gangrene; Y83.5 Amputation of limb(s) as the cause of abnormal reaction of the patient, or of later complication, without mention of misadventure at the time of the procedure; Z68.24 Body mass index [BMI] 24.0-24.9, adult; Z89.411 Acquired absence of right great toe; Z79.4 Long term (current) use of insulin; Y92.89 Other specified places as the place of occurrence of the external cause; Z79.84 Long term (current) use of oral hypoglycemic drugs; Z91.19 Patient's noncompliance with other medical treatment and regimen; Z91.14 Patient's other noncompliance with medication regimen; Z82.49 Family history of ischemic heart disease and other diseases of the circulatory system
CPT/HCPCS: 36415; 71045; 73630; 73718; 80048; 80053; 81001; 82948; 83036; 83540; 83550; 83605; 84145; 84484; 85025; 85045; 85610; 85651; 85730; 86140; 87040; 87070; 87076; 87077; 87186; 87205; 93005; 93926; G0378; J0360; J1170; J1650; J1815; J1885; J2250; J2405; J2543; J2704; J3010; J3370; J3490; J7030; L3260